=== PATIENT | male | born 1960 | race African-American/Black ===

== ENCOUNTER 2018-08-24 20:35 | Emergency (ER) | payer OTHER ==
[~2018-08-24] VITALS: Ht 180.3 cm; Wt 90.7 kg
[2018-08-25] MEDS ORDERED: IBUPROFEN 600MG TABLET PO ONE (02:45)
[2018-08-25 02:56] VITALS: BP 130/86
== END 2018-08-25 05:24 | disposition home or self-care (01) ==
LOC: ER 20:35
DX: M54.5 Low back pain (principal); M25.561 Pain in right knee; M25.512 Pain in left shoulder; M25.511 Pain in right shoulder; I10 Essential (primary) hypertension; W01.0XXA Fall on same level from slipping, tripping and stumbling without subsequent striking against object, initial encounter; Y93.89 Activity, other specified; Y92.511 Restaurant or cafe as the place of occurrence of the external cause
CPT/HCPCS: 72100; 73030; 73562; 99284